=== PATIENT | female | born 1950 | race Caucasian/White ===

== ENCOUNTER 2024-05-26 12:21 | Emergency (ER) | payer MEDICARE, OTHER ==
--- NOTE | 2024-05-26 14:15 | ED Physician Documentation ---
History of Present Illness - Stated complaint Stated Complaint: DIZZINESS,SENSATION TO TOUCH ON HEAD - Chief complaint Chief Complaint: Neuro - Additonal information Additional information: 73-year-old female with history of recent broken shoulder from ground-level fall that happened in February, hyperglycemia, hypothyroid, asthma presents emergency department for dizziness. Patient says that at nighttime she is been having a lot of episodes of coughing last night she started noticing increased dizziness she feels like the room is spinning around her. She feels very off balance and has had episodes of nausea with vomiting with the spinning sensation and now she is feeling an off sensation to her right forehead region. No Focal neurological deficits. PD PAST MEDICAL HISTORY - Past Medical History Past Medical History: Yes Cardiovascular: High cholesterol Respiratory: Asthma Neuro: None Endocrine/Autoimmune: HyPOthyroidism - Past Surgical History Past Surgical History: Yes Ortho: Carpal Tunnel surgery /PRIMARY COUNSELOR: Hysterectomy - Present Medications Home Medications: Ambulatory Orders Medication Instructions Recorded Confirmed Albuterol Sulf [Ventolin Hfa 1 - 2 puffs INH Q4HR PRN #1 ea 05/26/24 Inhaler] Meclizine [Antivert] 25 mg PO Q6H 5 Days #40 tablet 05/26/24 Ondansetron Odt [Zofran Odt] 4 mg TL Q6H PRN #10 tablet 05/26/24 - Allergies Allergies/Adverse Reactions: Allergies Allergy/AdvReac Type Severity Reaction Status Date / Time codeine AdvReac Nausea Verified 05/26/24 12:29 - Social History Does the pt smoke?: No Smoking Status: Never smoker Does the pt drink ETOH?: No Does the pt have substance abuse?: No - Immunizations Immunizations are current?: Yes PD ED PE NORMAL - Vitals Vital signs reviewed: Yes - General General: Alert and oriented X 3, No acute distress, Well developed/nourished - HEENT HEENT: Atraumatic, PERRL, EOMI, Moist mucous membranes - Neck Neck: No bony TTP - Cardiac Cardiac: RRR - Respiratory Respiratory: No respiratory distress - Abdomen Abdomen: Normal bowel sounds - Back Back: No CVA TTP - Derm Derm: Normal color, Warm and dry, No rash - Extremities Extremities: No edema - Neuro Neuro: Alert and oriented X 3, benefits specialist 2-12 intact, No motor deficit, No sensory deficit, Normal speech Eye Opening: Spontaneous Motor: Obeys Commands Verbal: Oriented GCS Score: 15 PD ED PE EXPANDED - Neuro Neuro: Alert and Oriented X 3, Normal motor, Normal Sensation, Normal Speech, Normal reflexes, CNII-XII intact, PERRL, Normal gait, Normal finger nose, Normal speech. No: Confused, Weakness, Abnormal sensation, Dyscongugate gaze, Nystagmus, Aphasia, Dysarthria Results - Vitals Vitals: Vital Signs - 24 hr 05/26/24 05/26/24 05/26/24 12:29 13:51 14:45 Temperature 36.5 C Heart Rate 70 71 89 Respiratory 16 16 17 Rate Blood Pressure 160/68 H 143/73 H O2 Saturation 100 97 05/26/24 15:27 Temperature Heart Rate 81 Respiratory 16 Rate Blood Pressure 170/66 H O2 Saturation 98 Oxygen O2 Source Room air - Labs Labs: Laboratory Tests 05/26/24 05/26/24 05/26/24 14:05 14:05 14:05 WBC 7.2 RBC 4.34 Hgb 13.4 Hct 40.7 MCV 93.8 MCH 30.9 MCHC 32.9 RDW 13.1 Plt Count 234 MPV 9.4 Neut # (Auto) 5.1 Lymph # (Auto) 1.5 [place] # (Auto) 0.4 Eos # (Auto) 0.1 Baso # (Auto) 0.1 Absolute Nucleated RBC 0.00 Nucleated RBC % 0.0 Sodium 134 L Potassium 3.7 Chloride 101 Carbon Dioxide 25 Anion Gap 8.0 BUN 18 Creatinine 0.7 Estimated GFR (MDRD) 82 L Glucose 93 Calcium 9.7 Magnesium 1.8 Total Bilirubin 0.5 AST 18 ALT 16 Alkaline Phosphatase 77 Total Protein 7.5 Albumin 4.5 Globulin 3.0 Albumin/Globulin Ratio 1.5 Lipase 20 TSH 2.38 Urine Color Urine Clarity Urine pH Ur Specific [place] Urine Protein Urine Glucose (UA) Urine Ketones Urine Occult Blood Urine Nitrite Urine Bilirubin Urine Urobilinogen Ur Leukocyte Esterase Ur Microscopic Review Urine Culture Comments 05/26/24 15:30 WBC RBC Hgb Hct MCV MCH MCHC RDW Plt Count MPV Neut # (Auto) Lymph # (Auto) [place] # (Auto) Eos # (Auto) Baso # (Auto) Absolute Nucleated RBC Nucleated RBC % Sodium Potassium Chloride Carbon Dioxide Anion Gap BUN Creatinine Estimated GFR (MDRD) Glucose Calcium Magnesium Total Bilirubin AST ALT Alkaline Phosphatase Total Protein Albumin Globulin Albumin/Globulin Ratio Lipase TSH Urine Color YELLOW Urine Clarity CLEAR Urine pH 6.0 Ur Specific [place] 1.010 Urine Protein NEGATIVE Urine Glucose (UA) NEGATIVE Urine Ketones 15 H Urine Occult Blood NEGATIVE Urine Nitrite NEGATIVE Urine Bilirubin NEGATIVE Urine Urobilinogen 0.2 (NORMAL) Ur Leukocyte Esterase NEGATIVE Ur Microscopic Review NOT INDICATED Urine Culture Comments NOT INDICATED - Rads (name of study) CT angio head and neck Relevant Findings:: Final report received, EMP independent interpretation of test, Other (No acute arterial abnormalities of the head or neck) Head CT without Relevant Findings:: Final report received, EMP independent interpretation of test, Other (No acute intracranial abnormalities) PD Medical Decision Making - ED course ED course: This patient presents with dizziness, most consistent with a peripheral cause, likely BPPV. No history of recent infection so doubt vestibular neuritis. History not consistent with meniere's disease. No history of trauma. No red flag features for central vertigo to include gradual onset, vertical/bidirectional or non-fatigable nystagmus, focal neurologic findings on exam (including inability to ambulate, ataxia, dysmetria). Presentation not consistent with an acute CAR PILOT infection, vertebral basilar artery insufficiency, cerebellar hemorrhage or infarction, intracranial mass or bleed. Out of abundance of caution we went ahead and did a head CT without contrast as well as a CT angio head and neck and no abnormalities or acute findings were visualized on these images. Labs are also completed for further evaluation and again no acute abnormal findings. Patient was given a DuoNeb here in the emergency department did notice significant improvement of symptoms of for her if patient's asthma. A prescription of meclizine was sent to patient's pharmacy as well as a prescription of albuterol. Patient was also told to consider starting to take Zyrtec as [place]. She is told if she has no improvement of symptoms in a couple days to come back to the emergency department for further evaluation but I believe that she is safe for discharge at this time with strict ER return precautions and follow-up with primary care provider. Departure - Departure Disposition: 01 Home, Self Care Clinical Impression: Vertigo, Asthma Instructions: ED BPV Vertigo, ED Vertigo Unspecified Prescriptions: Albuterol Sulf [Ventolin Hfa Inhaler] 1 - 2 puffs INH Q4HR PRN #1 ea PRN Reason: Wheezing Meclizine [Antivert] 25 mg PO Q6H 5 Days #40 tablet Ondansetron Odt [Zofran Odt] 4 mg TL Q6H PRN #10 tablet PRN Reason: Nausea / Vomiting Comments: Thank you for trusting us with your care. As we discussed we have completed labs as well as a head CT and a CT head and neck angio we are not seeing any acute abnormalities or findings at this point in time. I do have a strong suspicion that this is vertigo I sent a prescription of meclizine to your preferred pharmacy on file you can take this up to 3 times a day for dizziness symptoms. Drink plenty of fluids going home and look online on YouTube mehdi fall called an Aide's maneuver and do this at home. Keep in mind this is supposed to elicit and triggered dizziness but eventually it is what should help get rid of the dizziness. Please call your primary care provider to let them know about today's ER visit there is also physical therapist [place] who owns a business called [employer] dizziness and balance their phone number is [phone] they are great resource for people who are suffering from vertigo. As we discussed if after 1 or 2 days you are not having any improvement of symptoms after doing the Aide's maneuver, starting Zyrtec daily, and taking the meclizine up to 3 times a day as needed for dizziness please come back to the emergency department for further evaluation. Forms: PCP List Discharge Date/Time: 05/26/24 17:30
[2024-05-26 14:22] LABS: BASOPHILS # (AUTO) 0.1 10^3/uL (0.0-0.1); BASOPHILS % (AUTO) 0.8 %; EOSINOPHILS # (AUTO) 0.1 10^3/uL (0.0-0.7); EOSINOPHILS % (AUTO) 1.5 %; HCT - HEMATOCRIT 40.7 % (37.0-47.0); HGB - HEMOGLOBIN 13.4 g/dL (12.0-16.0); LYMPHOCYTES # (AUTO) 1.5 10^3/uL (1.5-3.5); LYMPHOCYTES % (AUTO) 20.8 %; MEAN CORPUSCULAR HEMOGLOBIN 30.9 pg (27.0-31.0); MEAN CORPUSCULAR HGB CONC 32.9 g/dL (32.0-36.0); MEAN CORPUSCULAR VOLUME 93.8 fL (81.0-99.0); MEAN PLATELET VOLUME 9.4 fL (7.9-10.8); MONOCYTES # (AUTO) 0.4 10^3/uL (0.0-1.0); MONOCYTES % (AUTO) 5.7 %; NEUTROPHILS # (AUTO) 5.1 10^3/uL (1.5-6.6); NEUTROPHILS % (AUTO) 70.9 %; PLT - PLATELET COUNT 234 10^3/uL (130-450); RED BLOOD COUNT 4.34 10^6/uL (4.20-5.40); RED CELL DISTRIBUTION WIDTH 13.1 % (12.0-15.0); WHITE BLOOD COUNT 7.2 x10^3/uL (4.8-10.8)
[2024-05-26] MEDS: IPRATROPIUM/ALBUTEROL 3 ML NEB INH STA (14:32)
[2024-05-26] MEDS: ONDANSETRON 4 MG/2 ML VIAL IVP STA (14:35)
[2024-05-26] MEDS: MECLIZINE 12.5 MG TABLET PO STA (14:35)
[2024-05-26 14:45] LABS: ALBUMIN 4.5 g/dL (3.2-5.5); ALBUMIN/GLOBULIN RATIO 1.5 (1.0-2.2); BILIRUBIN,TOTAL 0.5 mg/dL (0.2-1.0); CALCIUM 9.7 mg/dL (8.5-10.3); CREATININE 0.7 mg/dL (0.6-1.3); MAGNESIUM 1.8 mg/dL (1.7-2.3); POTASSIUM 3.7 mmol/L (3.5-4.5); TOTAL PROTEIN 7.5 g/dL (6.4-8.9)
[2024-05-26] MEDS ORDERED: iohexoL-300 100 ML VIAL ONE (15:10)
[2024-05-26 15:40] VITALS: BP 170/66; O2SAT 98
[2024-05-26 15:42] LABS: BILIRUBIN,URINE NEGATIVE (NEGATIVE); GLUCOSE, URINE (UA) NEGATIVE (NEGATIVE); KETONES,URINE (UA) 15 mg/dL (NEGATIVE); LEUKOCYTE ESTERASE, URINE NEGATIVE (NEGATIVE); NITRITE,URINE NEGATIVE (NEGATIVE); OCCULT BLOOD,URINE NEGATIVE (NEGATIVE); PROTEIN,URINE NEGATIVE (NEGATIVE); UROBILINOGEN,URINE 0.2 (NORMAL) E.U./dL (NORMAL)
[2024-05-26 15:45] LABS: CLARITY,URINE CLEAR (CLEAR)
[2024-05-26] MEDS: iohexoL-300 100 ML VIAL IVP ONE (16:37)
--- NOTE | 2024-05-26 16:52 | CT Report ---
PROCEDURE: Head WO INDICATIONS: dizziness TECHNIQUE: Noncontrast 4.5 mm thick angled axial sections acquired from the foramen magnum to the vertex. For r adiation dose reduction, the following was used: automated exposure control, adjustment of mA and/or kV according to patient size. COMPARISON: None. FINDINGS: Image quality: Excellent. CSF spaces: Basal cisterns are patent. No extra-axial fluid collections. Ventricles are normal in size and shape. Brain: No midline shift. No intracranial masses or hemorrhage. Rojas-white matter interface is norm al. Intracranial carotid calcifications. Age-related volume loss and mild, age appropriate small vess el ischemic change. Skull and face: Calvarium and visualized facial bones are intact, without suspicious lesions. Sinuses: Visualized sinuses and mastoids are clear. IMPRESSION: No acute intracranial pathology. Reviewed by: Hubert House MD on 05/26/2024 4:50 PM PDT Approved by: Hubert House MD on 05/26/2024 4:50 PM PDT Station ID: [id number]
--- NOTE | 2024-05-26 16:55 | CT Report ---
PROCEDURE: Angio Head/Neck INDICATIONS: dizzines TECHNIQUE: After the administration of intravenous contrast, 1 mm thick sections acquired from the aortic arch t hrough the [place] of [place]. 3-dimensional kbzzeif-nmkvzqdti-cphsygszts (MIP) and/or volume renderin g reformats were acquired of the central intracranial vasculature and neck separately. For radiation dose reduction, the following was used: automated exposure control, adjustment of mA and/or kV acco rding to patient size. CONTRAST: Omni 300 80ml COMPARISON: Head CT from the same date. FINDINGS: Image quality: Diagnostic. HEAD CT: CSF Spaces: Basal cisterns are patent. No extra-axial fluid collections. Ventricles are normal in size and shape. Brain: Accompanying head CT is unremarkable for patient age. Skull and face: Calvarium and visualized facial bones appear intact, without suspicious lesions. Sinuses: Visualized sinuses and mastoids are clear. HEAD CT ANGIOGRAPHY: Anterior circulation: Intracranial internal carotid arteries are normal in size and flow. The flow within the paired anterior cerebral arteries is normal and symmetric. The flow within the middle cer ebral arteries is normal and symmetric. The anterior communicating artery is seen. No aneurysms are seen. Posterior circulation: Visualized portions of the vertebral arteries demonstrate normal caliber, and join to form a normal appearing basilar artery. Flow within the posterior cerebral arteries is norm al and symmetric. No aneurysms are seen. NECK CT ANGIOGRAPHY: Carotid system: The great vessels demonstrate a conventional anatomy as they arise from the aortic a rch. The origins of the common carotid arteries appear patent. The common carotid arteries demonstr ate normal caliber and courses. The bifurcation regions are both widely patent. The internal caroti d arteries demonstrate normal calibers and courses. Posterior circulation: The origins of the vertebral arteries both appear widely patent. The more newman perior extracranial portions of both vertebral arteries also demonstrate normal courses and calibers. They join to form a normal appearing basilar artery. Soft tissues: Visualized neck soft tissues demonstrate no suspicious abnormalities. Bones: No suspicious bony lesions. Visualized cervical spine appears normally aligned. IMPRESSION: No significant intracranial arterial abnormality is seen. No significant abnormality is seen within the arteries of the neck. The estimate of stenosis included in the report of the imaging study was calculated using the NASCET method Reviewed by: Hubert House MD on 05/26/2024 4:54 PM PDT Approved by: Hubert House MD on 05/26/2024 4:54 PM PDT Station ID: [id number]
== END 2024-05-26 17:30 | disposition home or self-care (01) ==
LOC: ED 12:21
DX: J45.909 Unspecified asthma, uncomplicated (principal); R42 Dizziness and giddiness; E78.00 Pure hypercholesterolemia, unspecified; E03.9 Hypothyroidism, unspecified; Z79.899 Other long term (current) drug therapy
CPT/HCPCS: 36415; 70450; 70496; 70498; 80053; 81003; 83690; 83735; 84443; 85025; 94640; 96374; 99284; A9270; Q9967; 81001; 87086